=== PATIENT | female | born 1970 | race Caucasian/White ===

== ENCOUNTER 2018-02-21 05:41 | Day surgery (SDC) | payer OTHER ==
[~2018-02-21] VITALS: Ht 165.1 cm; Wt 84.3 kg
[~2018-02-21 05:41] MED LIST: AMOXICILLIN500 MG PO; MOTRIN600 MG PO; PERCOCET 10/1 TABLET PO; PREDNISONE10 MG PO; WELLBUTRIN XL300 MG PO; XANAX1 MG PO; ZOLOFT100 MG PO
[2018-02-21 06:19] VITALS: BP 126/63
[2018-02-21] MEDS ORDERED: PERCOCET 5/31 TABLET PO (09:58)
[2018-02-21 12:05] VITALS: BP 122/69
[2018-02-21 13:10] VITALS: BP 109/57
[2018-02-21 15:10] VITALS: BP 125/60
== END 2018-02-21 15:40 | disposition home or self-care (01) ==
LOC: SDC 05:41
DX: N80.0 Endometriosis of uterus (principal); D25.0 Submucous leiomyoma of uterus; N84.0 Polyp of corpus uteri; N73.6 Female pelvic peritoneal adhesions (postinfective); Z98.51 Tubal ligation status; N92.6 Irregular menstruation, unspecified
CPT/HCPCS: 88307; J0131; J0330; J0690; J1100; J1170; J1885; J2250; J2405; J2710; J2765; J3010; J7643